=== PATIENT | female | born 1975 | race Caucasian/White ===

== ENCOUNTER 2019-04-13 20:46 | Emergency (ER) | payer SELFPAY ==
[2019-04-13 20:47] VITALS: BP 149/93; PULSE 76; RESP 18; TEMP 36.4; O2SAT 97; BMI 47.5
--- NOTE | 2019-04-13 21:15 | RAD_ITS ---
STUDY: X-RAY - LEFT ANKLE REASON FOR EXAM: Female, 43 years old. LEFT ANKLE PAIN AFTER FALL TECHNIQUE: 3 view(s) of the ankle. COMPARISON: None. FINDINGS: Normal visualized distal tibia and fibula. Normal medial and lateral malleoli. Normal tibiotalar articulation and ankle mortise. Normal visualized talus and calcaneus. The visualized subtalar, talonavicular, calcaneocuboid and tarsal articulations are normal. There is soft tissue edema. There is a moderate sized calcaneal spur. There is an osteophyte at the Achilles tendon insertion. RAD/Ankle min 3 Views IMPRESSION: Soft tissue edema Calcaneal spur Osteophyte at the Achilles tendon insertion No acute fractures Electronically Signed: Marlo Sharp, at 21:46 EST Tel , Service support ,
--- NOTE | 2019-04-13 21:41 | ED.VIS.GEN ---
History of Present Illness Chief Complaint: Lower Extremity Injury Informant: Patient Narrative: Patient presents with left lateral ankle pain after a twist earlier today. She has no knee pain, she has no foot pain or any other injury. She did not fall and hit her head. Pain is mild worse when she stands on it, she is able to ambulate although it is somewhat painful. Past Medical History - Allergies and Home Meds Allergies/Adverse Reactions: Allergies No Known Allergies Allergy (Verified 04/13/19 20:47) Primary Care Physician: Gumaro Reid DO [Primary Care Provider] - Past Medical History: - - Diabetes Smoking Status: Never smoker Review of Systems General: Reports: Fever, - - No head injury Musculoskeletal: Reports: - - Ankle pain Skin: Denies: Wounds Neurological: Denies: Weakness, Parasthesia Hematologic: Denies: Easy bruising, Easy bleeding Physical Exam Vital Signs/Narrative: Vital Signs Temp Pulse Resp BP Pulse Ox 04/13/19 20:47 97.6 F L 76 18 149/93 H 97 General: Well nourished, Well developed ENT: Moist mucous membranes Respiratory: No distress Extremities: - - There is left lateral malleolus tenderness and some edema. There is no knee pain no proximal fibular tenderness. There is no foot tenderness especially no proximal fifth metatarsal tenderness. Knee is evaluated and is intact without any laxity. Ankle also has no laxity. Skin: Normal color Neurological: Normal Strength, Normal Sensation Diagnostic/Tx/Re-eval Left ankle x-ray 3 views interpreted by emergency doctor. Normal alignment. No fracture seen. Unremarkable x-ray - Medical Decision Making Patient has a normal x-ray I will put her in an Aircast and discharge her with reassurance ED Disposition - Plan for ED Patient: Disposition: Home or Assisted Living Diagnosis: Ankle sprain Instructions: Sprain, Ankle, with X-Ray Referrals: Gumaro Reid DO [Primary Care Provider] - 3-5 Days
[2019-04-13 21:59] VITALS: RESP 16
--- NOTE | 2019-04-13 22:00 | ED.RN ---
REVIEWED D/C INSTRUCTIONS, FOLLOW UP CARE, AND S/S THAT WOULD WARRANT A RETURN TO THE ED WITH PT. PT VERBALIZED AN UNDERSTANDING AND DENIES FURTHER QUESTIONS FOR THIS RN. PT SKIN P/W/D, RESP EVEN AND UNLABORED, PT A&O X 3, NO DISTRESS NOTED. PT ASSISTED OUT OF ED IN WHEELCHAIR.
== END 2019-04-13 22:01 | disposition home or self-care (01) ==
PROVIDERS: Emergency Provider Emergency Medicine; PCP Family Medicine
DX: S93.402A Sprain of unspecified ligament of left ankle, initial encounter (principal); E11.9 Type 2 diabetes mellitus without complications; Z79.4 Long term (current) use of insulin; X50.1XXA Overexertion from prolonged static or awkward postures, initial encounter
CPT/HCPCS: 73610; 99283

== ENCOUNTER 2020-02-05 08:36 | Day surgery (SDC) | payer SELFPAY ==
[2020-01-16 08:43] VITALS: BMI 44.6
[2020-02-04 12:07] LABS: Anion Gap 4 (5-15); BUN 20 mg/dL (7-18); BUN/Creat Ratio 26.8 RATIO (10-20); Calcium,Total 9.1 mg/dL (8.5-10.1); Chloride 103 mmol/L (98-107); Creatinine, Serum 0.75 mg/dL (0.55-1.02); EST Glomerular Filtration Rate 90 mL/min (>60); Est Glom Filt Rate - Afr Amer 109 mL/min (>60); Glucose 95 mg/dL (74-106); Potassium 3.7 mmol/L (3.5-5.1); Sodium Level 135 mmol/L (136-145)
[2020-02-04 12:17] LABS: Hemoglobin A1c 8.3 % (3.8-5.6)
[2020-02-05] VITALS (7 sets, daily range): BP systolic 95–135; BP diastolic 60–90; PULSE 63–82; RESP 16–18; TEMP 35.9–36.8; O2SAT 94–99; BMI 44.1
[2020-02-05 09:55] LABS: Bedside Glucose 132 mg/dL (70-110)
--- NOTE | 2020-02-05 10:01 | HP_ITS ---
I have re-examined the patient. There are no clinical changes since date of exam. Intake Vital Signs 01/16/20 Height 5 ft 4 in 01/16/20 Weight: 260 lb 01/16/20 BMI 44.6 Intake Visit Reasons: Left knee Accompanied by: Self Is patient in pain?: Yes Pain scale (1-10): 5 Allergies No Known Allergies Allergy (Verified 01/16/20 08:44) Medications Insulin NPH Hum/Reg Insulin Hm [Novolin 70-30 Flexpen] 60 unit SQ BID 04/13/19 [History Confirmed 01/16/20] Metformin HCl [Metformin ER Osmotic] 2,000 mg PO QHS 04/13/19 [History Confirmed 01/16/20] Post menopausal: Yes PFS Medical History (Updated 01/16/20 @ 09:18 by Elena Moore) Type 2 diabetes mellitus (Acute) delivery (Acute) removal of scar tissue (Acute) Surgical History (Updated 01/16/20 @ 08:46 by Elena Moore) H/O umbilical hernia repair (Acute) History of cholecystectomy (Acute) Family History (Updated 01/16/20 @ 08:46 by Elena Moore) Father Arthritis Social History (Updated 01/16/20 @ 10:[address] Amy Alvarez DO) household members: spouse, other details: son current occupational status: other details: homemaker Smoking Status: Never smoker alcohol intake: never what type of physical activity do you participate in: none do you feel safe at home: Yes HPI Left knee: Surgical H&P: Yes Details: Parts of this documentation were recorded by a scribe, this documentation accurately reflects the service provided and the decisions made by me, Dr. Amy Alvarez DO 01/16/20 0634. NEMO GOODEN is a 44 year old F here today to establish as a new patient. Patient was referred by Makenzie Adams NP for a second opinion. Patient has c/o left knee. On 04/13/2019, Patient was standing on a chair, putting up a curtain johnson. Twisted, and felt pain in her ankle. Patient went to the ER, they performed an x-ray. Patient is wondering if her knee pain came from the same DOI. Pain is located anterior, lateral, medial and posterior. Pain is described as burning. Described as tender to the touch with a blanket. Left knee does catch, and give out. Was ambulating with a cane. Denies any popping, clicking and snapping of her knee. Denies numbness, stiffness and tingling. Patient brought in imaging discs with x-ray and MRI done this year. Denies previous injuries, injections, surgeries and physical therapy. Pain is rated: 5/10 from the pain scale. Patient voiced her A1C was last done one month ago with the result of 10. ROS Const Denies system reviewed and no additional complaints, except as docu, Denies body aches, Denies chills, Denies fatigue, Denies fever(s), Denies headache(s), Reports weakness ENT Denies headache(s) Card Denies system reviewed and no additional complaints, except as docu, Denies chest pain, Denies shortness of breath Resp Reports system reviewed and no additional complaints, except as docu, Denies chest congestion, Reports cough, Denies shortness of breath GI Denies system reviewed and no additional complaints, except as docu, Denies abdominal pain, Denies bloating, Denies constipation, Denies incontinent of stools, Denies loose stools Denies system reviewed and no additional complaints, except as docu, Denies urinary incontinence Musc Reports system reviewed and no additional complaints, except as docu, Reports joint pain, Reports joint swelling, Denies numbness, Denies stiffness, Denies tingling Skin/Breast Denies system reviewed and no additional complaints, except as docu, Denies dry skin, Denies redness, Denies lesions, Denies new lesions, Denies non-healing lesions, Denies itching, Denies rash, Denies skin ulcer, Denies sores, Denies wounds Neuro Yes system reviewed and no additional complaints, except as docu, No headache(s), No numbness, No radiating pain, No tingling, Yes weakness Endo Denies fatigue Ortho Exam Left Knee Date of injury: 04/13/19 Homans Sign: No 1+: Effusion Knee ROM: Yes ROM-Extension -20 to 0, Yes ROM-Flexion 0-140, Yes ROM-Passive Extension -10 to 0, Yes ROM-Passive Flexion 0-140 Examination: Yes med jt line tenderness, Yes Ashly's Test Stability: NML: Posterior Drawer, NML: Valgus 0, NML: Valgus 30, NML: Varus 0, NML: Varus 30, NML: Dial 90, NML: Dial 30, 1+: Anterior Drawer, 1+: Clyde Assessment & Plan Problems 1. Tear of medial meniscus of left knee, current, unspecified tear type, initial encounter S83.242A 2. Tear of meniscus of left knee S83.207A Plan Personally reviewed imaging disc's brought in by the patient. Advised and educated patient does have a tear in her meniscus. Gave patient the following options: Do nothing, steroid injection, brace, physical therapy, surgical intervention. Patient would like to go forward with surgery. Patient voiced she would like her left knee fixed as unstable and unable to perform adls and gets stuck and gives out. Will order a repeat A1c a week prior to surgery. Depending if her A1c is lower than last reported, we can proceed with surgery. If her A1c is higher, then we would have to re-evaluate. Patient aware. Reviewed the pre-operative plans with the patient. Risks and benefits of the procedure were fully explained, including but not limited to infection, neurovascular injury, continued pain, arthritis, stiffness, need for further surgery, re-injury, DVT, PE, general risks of anesthesia, and loss of limb or life. The patient understands all the risks and does wish to proceed with written consent. All questions answered. Patient in agreement of plan. I would like to thank Makenzie Adams NP for this referral. We discussed the current risk associated COVID-19. While it is understood that there is a community spread of COVID 19 the risk of yousif COVID-19 while at [facility] is very low, however, the risk cannot be completely mitigated because of the community spread of the disease. We discussed in detail the risk of exposure to and or potential harm posed by the COVID-19 virus with having a surgery/procedure at this time versus the risk of delaying the surgery/procedure. Is not possible to know either the risk of delaying the surgery procedure or chance of getting an infection with perfect accuracy, but a joint decision was made to proceed at this time with a schedule surgery/procedure as indicated on the consent form. Patient was notified that we will need to comply with any screening or testing [facility] wishes to perform or that surgery may be delayed for any positive results. Coding Level of Care Code 64345 Diagnoses Tear of medial meniscus of left knee, current, unspecified tear type, initial encounter S83.242A ??Encounter type: initial encounter ??Laterality: left ??Meniscus tear of knee type: unspecified type ??Tear current or old: current Tear of meniscus of left knee S83.207A
--- NOTE | 2020-02-05 10:10 | SYN_PTH ---
PATIENT: NEMO GOODEN LOC: [facility] – [place] U#:[id number] AGE/SX: 44/F ROOM: RE02/05/[address]: Dr. Amy Alvarez DO : 1975 BED: DIS: 02/05/2020 SPEC #: [id number] RECD: 02/05/20 13:53 STATUS: MYA REPadmini #: [id number] KARLY: 02/05/20 10:[address]: Amy Alvarez DEPT: SURGICAL PATHOLOGY RECD BY: Kayce Andrade ENTERED: 02/06/20 07:57 SP TYPE: SYNOVIUM OTHR DR: Dr. Gumaro Reid, Tissues: Synovial tissue of joint, NOS Procedures: Surgery Specimen Level III HEADER OPERATION: Knee arthroscopy, extensive synovectomy, medial femoral PRE-OP DIAGNOSIS: Tear of medial meniscus left knee TISSUE SUBMITTED: Synovitis left knee MICROSCOPIC DIAGNOSIS Left knee synovium, biopsy: Mild hyperplasia and associated mild chronic inflammation. AM:ofelia 02/07/20 MICROSCOPIC DESCRIPTION Slides are reviewed. GROSS DESCRIPTION Received in fixative is one container labeled with the patient's name and designated synovitis left knee. The specimen consists of a piece of augustin soft tissue measuring 1.5 x 0.5 x 0.2 cm. The specimen is totally submitted in one cassette. / SJ:ofelia 02/06/20 TC:3 CPT: 82423
[2020-02-05] MEDS: Lactated Ringers 1,000 ML 75 ML IV (10:19)
--- NOTE | 2020-02-05 10:20 | DCINST_ITS ---
Discharge Diet: No Restrictions - wbat left leg, leave dressings intact, call with increased pain,or if issues arise, follow up in 2 weeks for initiation of PT, see mc on monday for dressing change and initiation of PT Discharge Activity: May Not Drive May shower in (days): 1 Ice area for (Minutes): 20 - Every hour while awake. Weight Bearing Status: Weight bearing as tolerated Keep extremity elevated above heart level: Operative Extremity Call your doctor if your incision/area has: Continuous Slow Oozing, Sudden Increased Bleeding, Increased Pain/ Swelling, Increased Redness, Foul Smelling Discharge Call your doctor if you observe: Fever of 101 or Higher, Coldness, Increased Pain, Numbness or Tingling, Change in Color, Calf discomfort Allergies/Adverse Reactions: Allergies No Known Allergies Allergy (Verified 02/05/20 09:02) Medications to take at Discharge Insulin NPH Hum/Reg Insulin Hm [Novolin 70-30 Flexpen] 60 unit SQ BID 04/13/19 Metformin HCl [Metformin ER Osmotic] 2,000 mg PO QHS 04/13/19 Oxycodone HCl/Acetaminophen [Percocet 5/325] 1 - 2 tab PO Q6H PRN PRN 5 Days #28 tab 02/05/20 The following prescriptions were given: Oxycodone HCl/Acetaminophen [Percocet 5/325] 1 - 2 tab PO Q6H PRN PRN 5 Days #28 tab PRN Reason: Pain Transmission Status: Received by [facility] Primary Care Physician: Gumaro Reid DO [Primary Care Provider] - Test Results: Test results from this visit will be discussed in further detail at your follow- up appointment, if applicable. Please Follow Up With: Amy Alvarez DO - [phone]
--- NOTE | 2020-02-05 10:20 | PCM.OPRPT ---
Report of Operation Date of Procedure: 02/05/20 Pre-Operative Diagnosis: left knee medial menisus tear, medial joint line oa Post-Operative Diagnosis: extensive synovitis Surgery/Procedure Performed:: salk, partial medial meniscectomy, mfc chondroplasty, ext synovectomy, lat tib plateau chondroplasty, patella osteophyte debridement storekeeper engineering: Isaac Hayes Type of Anesthesia:: General/Regional Anesthesiologist: Chapincito Santos Specimen's removed: synovial tissue knee Estimated Blood Loss (mL): min Fluids Replaced: 600cc lr Description of Procedure: Preop note Patient is a 44-year-old female with left knee pain and instability. Patient had a elevated hemoglobin A1c she did bring it down to 8.3. Risk benefits and alternatives were discussed with patient after patient failed conservative treatment options having continued medial knee pain instability locking. Risk benefits alternatives were discussed with patient. Risk include but not limited to blood loss, blood clot, infection, neurovascular, failure procedure, loss of life and loss of limb. Patient is aware like proceed with left knee arthroscopy repair as indicated. We discussed the current risk associated COVID-19. While it is understood that there is a community spread of COVID 19 the risk of yousif COVID-19 while at [facility] is very low, however, the risk cannot be completely mitigated because of the community spread of the disease. We discussed in detail the risk of exposure to and or potential harm posed by the COVID-19 virus with having a surgery/procedure at this time versus the risk of delaying the surgery/procedure. Is not possible to know either the risk of delaying the surgery procedure or chance of getting an infection with perfect accuracy, but a joint decision was made to proceed at this time with a schedule surgery/procedure as indicated on the consent form. Patient was notified that we will need to comply with any screening or testing [facility] wishes to perform or that surgery may be delayed for any positive results. Operative note Patient seen examined preop holding area. Left knee was marked. Patient brought to the operating room. Placed supine on the operating table. Signed, anesthesia, antibiotics were administered. Left leg was prepped and draped usual sterile technique with a tourniquet around her upper thigh. All bony prominences well-padded SCDs placed on her bilateral on her contralateral limb. We then marked out our incisions for portal placement. Left leg was then elevate exsanguinated tourniquet was raised her pressure of 250 torr. Timeout was performed. Then created an anterior lateral portal and began our diagnostic arthroscopy. The patellofemoral joint had a large osteophyte in the inferior pole of the patella. Then moved to the anteromedial joint line created anterior medial portal under direct visualization. We difficult time seeing the anteromedial lateral anterior lateral recess that she had quite extensive erythematous synovitis throughout her anterior medial anterior lateral recesses as well as her patellofemoral joint. We then probed the posterior horn of the medial meniscus which was unstable to probing and a large tear of the leading to the to the root. We then debrided back the unstable meniscus tear. She had a large 3 x 3 cm MFC grade 3 eburnated changes on the medial aspect of her medial femoral condyle which was also gently debrided with a shaver. ACL and PCL were present within the notch. The lateral meniscus was intact and stable probing. There was some chondral changes just at the root of the lateral tibial plateau which was gently debrided with a shaver. We then inserted a shaver and we debrided back the patella osteophyte. We then resected back again more of the anterior lateral anteromedial synovitis. We took a biopsy from the patellofemoral joint to send far to pathology for further evaluation of her synovial tissue. We then irrigated the knee with copious nonsterile saline. Tract was deflated for total working time of 30 minutes. Portals were closed with intrafour nonnylons. Patient taught procedure well no complication transfer recovery room in stable condition. Postoperative note Weight-bear as tolerated left leg Pharmacy has prescriptions Discussed with Call with increased pain numbness tingling further issues arise Dragon disclaimer This note was generated with [employer] dictation software. It may contain incorrect words, spelling, and punctuation that were not noted in checking the note before signing.
[2020-02-05] MEDS: Cefazolin 2 GM in 0.9% Normal Saline 100 ML IV (10:59)
[2020-02-05] MEDS: Mupirocin Ointment 22gm Tube 1 APPLIC (11:27)
[2020-02-05] MEDS: Epinephrine (1 mg/ml) 1 MG/ML VIAL (11:30)
[2020-02-05 13:31] LABS: Bedside Glucose 87 mg/dL (70-110)
== END 2020-02-05 14:29 | disposition home or self-care (01) ==
LOC: SDC 08:39 → AC 08:41
PROVIDERS: Anesthesiology; PCP Family Medicine; Referring Provider Orthopaedic Surgery; Visit Provider Orthopaedic Surgery
PROC: (CPT 29888; principal; 2020-02-05 09:50)
DX: S83.242A Other tear of medial meniscus, current injury, left knee, initial encounter (principal); X50.1XXA Overexertion from prolonged static or awkward postures, initial encounter; Y93.89 Activity, other specified; Y92.9 Unspecified place or not applicable; Y99.9 Unspecified external cause status; Z79.4 Long term (current) use of insulin; E11.9 Type 2 diabetes mellitus without complications; M17.12 Unilateral primary osteoarthritis, left knee
CPT/HCPCS: 29876; 29881; 36415; 80048; 82962; 83036; 87426; 88304; 88305; C9803; J7120; J2405